=== PATIENT | female | born 1990 | race Caucasian/White ===

== ENCOUNTER 2021-09-29 19:57 | Emergency (ER) | payer OTHER ==
[~2021-09-29] VITALS: Ht 162.6 cm; Wt 77.1 kg
[2021-09-29 20:01] VITALS: BP_SYST 149
--- NOTE | 2021-09-29 20:04 | NUR ---
PER PATIENT, FEELS NUMBNESS IN FINGERTIPS X A FEW DAYS WITH POPPING IN HER LEFT EAR X A FEW DAYS WELL. PATIENT IS IN A SOBER HOUSE, CLEAN SINCE 09/19/21.
--- NOTE | 2021-09-29 20:14 | NUR ---
PATIENT BROUGHT TO HALLWAY BED FOR EVAL.
--- NOTE | 2021-09-29 20:20 | NUR ---
DR. NARANJO TO BEDSIDE TO ASSESS PATIENT.
--- NOTE | 2021-09-29 20:25 | NUR ---
Pt to radiology
--- NOTE | 2021-09-29 20:40 | NUR ---
Pt back from radiology at this time.
[2021-09-29] MEDS ORDERED: NAPR-690 PO (21:17)
[2021-09-29 21:20] VITALS: BP_SYST 149
--- NOTE | 2021-09-29 21:20 | NUR ---
Patient given written and verbal discharge instructions and verbalizes understanding. ER MD discussed with patient the results and treatment provided. Patient in stable condition. ID arm band removed. Rx of Naproxen given. Patient educated on pain management and to follow up with PMD. Pain Scale 0/10 Opportunity for questions provided and answered.
== END 2021-09-29 21:20 | disposition home or self-care (01) ==
LOC: SED 19:57
DX: S63.639A Sprain of interphalangeal joint of unspecified finger, initial encounter (principal); F12.90 Cannabis use, unspecified, uncomplicated; Z79.899 Other long term (current) drug therapy; Y04.0XXA Assault by unarmed brawl or fight, initial encounter; Y93.89 Activity, other specified; Y92.89 Other specified places as the place of occurrence of the external cause; Y99.8 Other external cause status
CPT/HCPCS: 73140-TC; 81025; 99283